=== PATIENT | female | born 1990 | race Caucasian/White ===

== ENCOUNTER 2019-05-01 09:28 | Emergency (ER) | payer BC, OTHER ==
[~2019-05-01] VITALS: Ht 154.9 cm; Wt 49.9 kg
[~2019-05-01 09:28] MED LIST: HUM SUBQ; LEVEMIR SUBQ
[2019-05-01 09:31] VITALS: BP 115/75
--- NOTE | 2019-05-01 09:50 | NUR ---
influenza swab collected and sent to lab--pt to radiology via wc
--- NOTE | 2019-05-01 10:28 | NUR ---
Patient ambulated to bed 7. RN evaluating patient at bedside.
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
--- NOTE | 2019-05-01 10:50 | NUR ---
LAB CALLED TO ADV THAT PT IS FLU A+
--- NOTE | 2019-05-01 11:57 | NUR ---
PT SITTING IN BED. AO X4. ONE BEDRAIL UP FOR SAFETY. AT BEDSIDE.
--- NOTE | 2019-05-01 12:30 | NUR ---
Dr. Robert is evaluating the patient at bedside.
[2019-05-01 12:53] VITALS: BP 115/75
--- NOTE | 2019-05-01 12:53 | NUR ---
Patient discharged with v/s stable. Written and verbal after care instructions given and explained. Patient alert, oriented and verbalized understanding of instructions. Ambulatory with steady gait. All questions addressed prior to discharge. ID band removed. Patient advised to follow up with PMD. Rx of PREDNISONE,MOTRIN,NORCO given. Patient educated on indication of medication including possible reaction and side effects. Opportunity to ask questions provided and answered.
== END 2019-05-01 12:53 | disposition home or self-care (01) ==
LOC: MED 09:28
DX: J10.1 Influenza due to other identified influenza virus with other respiratory manifestations (principal); E11.9 Type 2 diabetes mellitus without complications; Z79.4 Long term (current) use of insulin
CPT/HCPCS: 71045; 87804; 99284

== ENCOUNTER 2021-12-15 11:28 | Emergency (ER) | payer BC, OTHER ==
[~2021-12-15] VITALS: Ht 157.5 cm; Wt 47.6 kg
[2021-12-15 11:57] VITALS: BP 103/65
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
--- NOTE | 2021-12-15 13:18 | NUR ---
PATIENT LEFT WITHOUT BEING SEEN BY DR. ELLIS. NO FURTHER CARE PROVIDED FOR PATIENT.
== END 2021-12-15 13:18 | disposition left against medical advice (07) ==
LOC: MED 11:28
DX: R51.9 Headache, unspecified (principal); Z53.21 Procedure and treatment not carried out due to patient leaving prior to being seen by health care provider; V49.88XA Car occupant (driver) (passenger) injured in other specified transport accidents, initial encounter; Y93.89 Activity, other specified; Y92.89 Other specified places as the place of occurrence of the external cause; Y99.8 Other external cause status

== ENCOUNTER 2023-05-24 10:09 | Emergency (ER) | payer OTHER ==
[~2023-05-24] VITALS: Ht 157.5 cm; Wt 49.0 kg
[2023-05-24 10:16] VITALS: BP 117/73; PULSE 103; RESP 16; TEMP 97.9; O2SAT 98
[2023-05-24 11:25] LABS: BASOPHILS # (AUTO) 0.1 K/uL (0.00-0.22); BASOPHILS % (AUTO) 0.8 % (0.0-2.0); EOSINOPHILS % (AUTO) 0.6 % (0.0-4.0); HEMATOCRIT 38.6 % (36-48); LYMPHOCYTES # (AUTO) 1.8 K/uL (2.5-16.5); LYMPHOCYTES % (AUTO) 22.6 % (20.5-51.1); MEAN CORPUSCULAR HEMOGLOBIN 26 pg (27-31); MEAN CORPUSCULAR HGB CONC 34 g/dL (33-37); MONOCYTES # (AUTO) 0.6 K/uL (0.8-1.0); MONOCYTES % (AUTO) 7.6 % (1.7-9.3); NEUTROPHILS # (AUTO) 5.4 K/uL (1.8-7.7); NEUTROPHILS % (AUTO) 68.4 % (42.2-75.2); PLATELET COUNT (AUTO) 301 K/uL (140-450); RED BLOOD CELL COUNT(AUTO) 5.01 MIL/uL (4.20-5.40); RED CELL DISTRIBUTION WIDTH 15.3 % (11.6-13.7)
[2023-05-24 11:39] LABS: ANION GAP 10.3 (8-16); CALCIUM 9.6 mg/dL (8.5-10.1); CARBON DIOXIDE 29.4 mmol/L (21-32); CREATININE 0.6 mg/dL (0.6-1.3); POTASSIUM 3.7 mmol/L (3.5-5.1)
[2023-05-24] MEDS: NACL 0.9% 1,000 ML IV ONE (11:45)
[2023-05-24 12:03] LABS: ALANINE AMINOTRANSFERASE 13 U/L (12-78); ALBUMIN 3.8 g/dL (3.4-5.0); ALKALINE PHOSPHATASE 63 U/L (50-136); ASPARTATE AMINOTRANSFERASE 13 U/L (15-37); BILIRUBIN,DIRECT 0.1 mg/dL (0.0-0.3); TOTAL BILIRUBIN 0.4 mg/dL (0.0-1.0); TOTAL PROTEIN, SERUM 8.6 g/dL (6.4-8.2)
[2023-05-24 12:37] VITALS: BP 117/73; PULSE 91; RESP 16; TEMP 97.9; O2SAT 99
== END 2023-05-24 12:38 | disposition home or self-care (01) ==
LOC: MED 10:09
DX: R07.9 Chest pain, unspecified (principal); F43.9 Reaction to severe stress, unspecified; H53.8 Other visual disturbances; E11.65 Type 2 diabetes mellitus with hyperglycemia; Z79.4 Long term (current) use of insulin; Z79.899 Other long term (current) drug therapy
CPT/HCPCS: 36415; 71045; 80048; 80076; 81025; 82948; 84484; 85025; 96360; 99285; J7030; 43753

== ENCOUNTER 2023-08-26 12:16 | Emergency (ER) | payer OTHER ==
[~2023-08-26] VITALS: Ht 157.5 cm; Wt 53.1 kg
[2023-08-26 12:21] VITALS: BP 106/68; PULSE 90; RESP 18; TEMP 97.8; O2SAT 100
[2023-08-26 13:03] LABS: BASOPHILS % (AUTO) 0.5 % (0.0-2.0); EOSINOPHILS # (AUTO) 0.1 K/uL (0-0.4); EOSINOPHILS % (AUTO) 1.3 % (0.0-4.0); HEMATOCRIT 36.4 % (36-48); HEMOGLOBIN 12.1 g/dL (12.0-16.0); LYMPHOCYTES # (AUTO) 1.4 K/uL (2.5-16.5); LYMPHOCYTES % (AUTO) 19.8 % (20.5-51.1); MEAN CORPUSCULAR HEMOGLOBIN 26 pg (27-31); MEAN CORPUSCULAR HGB CONC 33 g/dL (33-37); MONOCYTES # (AUTO) 0.7 K/uL (0.8-1.0); NEUTROPHILS # (AUTO) 4.8 K/uL (1.8-7.7); NEUTROPHILS % (AUTO) 68.4 % (42.2-75.2); PLATELET COUNT (AUTO) 249 K/uL (140-450); RED BLOOD CELL COUNT(AUTO) 4.67 MIL/uL (4.20-5.40); RED CELL DISTRIBUTION WIDTH 15.8 % (11.6-13.7)
[2023-08-26 13:23] VITALS: BP 103/69; PULSE 89; RESP 20; TEMP 98.6; O2SAT 98
[2023-08-26 13:25] LABS: ANION GAP 9.6 (8-16); CARBON DIOXIDE 27.5 mmol/L (21-32); CREATININE 0.9 mg/dL (0.6-1.3); POTASSIUM 4.1 mmol/L (3.5-5.1)
== END 2023-08-26 14:41 | disposition home or self-care (01) ==
LOC: MED 12:16
DX: R07.89 Other chest pain (principal); E10.9 Type 1 diabetes mellitus without complications
CPT/HCPCS: 36415; 71045; 80048; 81025; 82948; 84484; 85025; 93005; 99285